=== PATIENT | male | born 1985 | race African-American/Black ===

== ENCOUNTER 2020-03-25 15:03 | Emergency (ER) | payer OTHER ==
[~2020-03-25] VITALS: Ht 188 cm; Wt 79.5 kg
[2020-03-25] MEDS ORDERED: NAPROXEN 500 MG TABLET PO STA (16:11)
[2020-03-25] MEDS ORDERED: HYDROcodone/APAP 5/325MG 1 TAB TABLET PO ONE (16:15)
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
[2020-03-25] MEDS ORDERED: HYDR-2761 PO (17:11)
[2020-03-25] MEDS ORDERED: NAPR-514 PO (17:11)
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
[2020-03-25 17:32] VITALS: BP 130/61
== END 2020-03-25 17:32 | disposition home or self-care (01) ==
LOC: ER 15:03
DX: S22.42XA Multiple fractures of ribs, left side, initial encounter for closed fracture (principal); F17.200 Nicotine dependence, unspecified, uncomplicated; V49.9XXA Car occupant (driver) (passenger) injured in unspecified traffic accident, initial encounter; Y93.89 Activity, other specified; Y92.488 Other paved roadways as the place of occurrence of the external cause; Y99.8 Other external cause status
CPT/HCPCS: 71101; 99282